=== PATIENT | female | born 1990 | race Caucasian/White ===

== ENCOUNTER 2021-05-14 16:26 | Emergency (ER) | payer OTHER ==
--- NOTE | 2021-05-14 17:59 | ED Physician Documentation ---
PD HPI FOCAL NEURO - Stated complaint Stated Complaint: RT FACE NUMB - Chief complaint Chief Complaint: Neuro - History obtained from History obtained from: Patient - Additional information Additional information: Throughout the day today the right side of her face felt funny and she noticed an asymmetric smile and difficulty closing the right eye. There is no associated headache or double vision. No other neurologic symptoms. Review of Systems Constitutional: reports: Reviewed and negative Eyes: reports: Reviewed and negative Ears: reports: Reviewed and negative Nose: reports: Reviewed and negative Throat: reports: Reviewed and negative PD PAST MEDICAL HISTORY - Present Medications Home Medications: Ambulatory Orders Medication Instructions Recorded Confirmed Valacyclovir HCl [Valtrex] 1,000 mg PO TID #30 tablet 05/14/21 predniSONE [Deltasone] 20 mg PO [id number] #21 tab 05/14/21 - Allergies Allergies/Adverse Reactions: Allergies Allergy/AdvReac Type Severity Reaction Status Date / Time No Known Drug Allergies Allergy Verified 05/14/21 16:46 PD ED PE NORMAL - Vitals Vital signs reviewed: Yes - General General: Alert and oriented X 3, No acute distress - HEENT HEENT: PERRL, EOMI - Neuro Neuro: Alert and oriented X 3, Other (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 There are no other cranial neuropathies.) Results - Vitals Vitals: Vital Signs - 24 hr 05/14/21 16:40 Temperature 36.4 C L Heart Rate 79 Respiratory 16 Rate Blood Pressure 130/77 O2 Saturation 98 Oxygen O2 Source Room air Departure - Departure Disposition: 01 Home, Self Care Clinical Impression: Bhatia's palsy Condition: Good Record reviewed to determine appropriate education?: Yes Instructions: ED [place] Palsy Prescriptions: predniSONE [Deltasone] 20 mg PO [id number] #21 tab Valacyclovir HCl [Valtrex] 1,000 mg PO TID #30 tablet Comments: Return if you worsen or if new symptoms develop. As discussed you may need to tape your eye shut at night and you should also buy an [id number] eye lubricating drop when you are at the pharmacy. [place]
[2021-05-14 18:17] VITALS: BP 132/65
== END 2021-05-14 18:12 | disposition home or self-care (01) ==
LOC: ED 16:26
DX: G51.0 Bell's palsy (principal)
CPT/HCPCS: 99282; 99283

== ENCOUNTER 2023-01-14 22:56 | Outpatient (CLI) | payer OTHER | END 2023-01-14 23:59 | disposition critical access hospital (66) | LOC: EMS 22:56 | DX: L50.9 Urticaria, unspecified (principal); L29.9 Pruritus, unspecified; R20.2 Paresthesia of skin; R11.0 Nausea; R25.1 Tremor, unspecified; R00.0 Tachycardia, unspecified | CPT/HCPCS: A0425; A0427 ==

== ENCOUNTER 2023-01-14 23:11 | Emergency (ER) | payer OTHER ==
--- NOTE | 2023-01-15 01:56 | ED Physician Documentation ---
History of Present Illness - Stated complaint Stated Complaint: ALLERGIC REACTION - Chief complaint Chief Complaint: Allergic Rx - History obtained from History obtained from: Patient - Additonal information Additional information: HPI from patient and EMS BIBA for possible allergic reaction. Patient developed diffuse pruritic rash approximately 30 minutes after taking a dose of miralax. She does not recall having taken this medication before. Denies h/o allergic reactions. Denies dyspnea but noted lightheadedness at times once the rash had appeared. EMS noted normal vital signs in field, administered 0.5mg IM epinephrine, and IV zofran, benadryl, and solu-medrol. Symptoms have resolved by the time of ED arrival. She is asymptomatic on my evaluation. Review of Systems Respiratory: reports: Reviewed and negative GI: reports: Reviewed and negative PD PAST MEDICAL HISTORY - Past Medical History Past Medical History: No - Present Medications Home Medications: Ambulatory Orders Medication Instructions Recorded Confirmed Valacyclovir HCl [Valtrex] 1,000 mg PO TID #30 tablet 05/14/21 predniSONE [Deltasone] 20 mg PO [id number] #21 tab 05/14/21 EPINEPHrine [Epinephrine] 0.3 mg IJ ONCE PRN #2 each 01/15/23 predniSONE [Deltasone] 40 mg PO DAILY 4 Days #6 tablet 01/15/23 - Allergies Allergies/Adverse Reactions: Allergies Allergy/AdvReac Type Severity Reaction Status Date / Time polyethylene glycol 3350 Allergy Anaphylaxis Verified 01/15/23 02:34 [From Miralax] PD ED PE NORMAL - Vitals Vital signs reviewed: Yes - General General: Alert and oriented X 3 - Cardiac Cardiac: RRR, No murmur - Respiratory Respiratory: No respiratory distress, Clear bilaterally - Derm Derm: Normal color, Warm and dry, No rash Results - Vitals Vitals: Oxygen O2 Source Room air PD Medical Decision Making - ED course Complexity details: reviewed results, re-evaluated patient, considered differential, d/w patient ED course: Presents with symptoms s/o allergic reaction , possibly due to miralax (suspected due to not having had this medication before and temporal proximity of dosing to symptoms). 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 observed for over 3.5 hours in ED without recurrence of symptoms, asymptomatic on initial HPI as well as reevaluation prior to d/c. She is provided prescriptions for epi-pens, prednisone, and given benadryl to take home (does not have this, or other antihistamines, at home). Advised to not take miralax again. Return precautions reviewed. Departure - Departure Disposition: Home, Self Care Clinical Impression: Allergic reaction Qualifiers: Encounter type: initial encounter Qualified Code(s): T78.40XA - Allergy, unspecified, initial encounter Condition: Good Instructions: ED Allergic Reaction General Other Prescriptions: predniSONE [Deltasone] 40 mg PO DAILY 4 Days #6 tablet EPINEPHrine [Epinephrine] 0.3 mg IJ ONCE PRN #2 each PRN Reason: Anaphylaxis Comments: I have electronically submitted prescriptions for Epi-Pen (epinephrin in an auto-inject device; the pharmacist can instruct you on how to use this autoinjector) and prednisone (steroid) to the [facility] pharmacy in [place]. When you scrap picker these prescriptions, you should also buy an antihistamine such as Benadryl to be used per label instructions in case you have ongoing or recurrent symptoms of allergic reaction. Discharge Date/Time: 01/15/23 03:03
[2023-01-15] MEDS ORDERED: diphenhydrAMINE 25 MG CAPSULE PO STA (02:30)
[2023-01-15 02:57] VITALS: BP 114/63
== END 2023-01-15 03:03 | disposition home or self-care (01) ==
LOC: EDUNIT# → ED 23:11
DX: T78.40XA Allergy, unspecified, initial encounter (principal)
CPT/HCPCS: 99283; A9270

== ENCOUNTER 2024-02-23 15:16 | Emergency (ER) | payer OTHER ==
--- NOTE | 2024-02-23 18:01 | ED Physician Documentation ---
History of Present Illness - Stated complaint Stated Complaint: HEART PALP, [place] - Chief complaint Chief Complaint: Cardiac - History obtained from History obtained from: Patient - History of Present Illness Pain level max: 0 Pain level now: 0 - Additonal information Additional information: Patient is a 33-year-old female who complains of palpitations. Ongoing for the past several days, worsening today. She states that she does vape, used to smoke. Does not take any medications at home. Drinks 1 cup of coffee per day. Does not drink energy drinks. She had been on Adderall but did not like the way that it made her feel, therefore she stopped this about a month ago. She states that it feels like there is a sharp pain in her chest and then her heart "skips a beat". Nothing seems to make it better or worse. No fevers. No chills. No cough. No congestion. 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 : None HEENT: None Psych: ADD/ADHD, Post traumatic stress disorder Musculoskeletal: None Derm: None - Past Surgical History Past Surgical History: No - Present Medications Home Medications: Ambulatory Orders Medication Instructions Recorded Confirmed Acetaminophen [Tylenol] 1 tab PO PRN PRN 02/23/24 02/23/24 Ibuprofen [Motrin] 1 tab PO PRN PRN 02/23/24 02/23/24 - Allergies Allergies/Adverse Reactions: Allergies Allergy/AdvReac Type Severity Reaction Status Date / Time polyethylene glycol 3350 Allergy Anaphylaxis Verified 02/23/24 15:24 [From Miralax] - Social History Does the pt smoke?: No Smoking Status: Never smoker Does the pt drink ETOH?: No Does the pt have substance abuse?: No - Immunizations Immunizations are current?: Yes - POLST Patient has POLST: No PD ED PE NORMAL - Vitals Vital signs reviewed: Yes - General General: Alert and oriented X 3, No acute distress - HEENT HEENT: Moist mucous membranes - Neck Neck: Supple, no meningeal sign - Cardiac Cardiac: RRR, Strong equal pulses - Respiratory Respiratory: No respiratory distress, Clear bilaterally - Abdomen Abdomen: Soft, Non tender, Non distended - Derm Derm: Warm and dry - Extremities Extremities: No edema, No calf tenderness / cord - Neuro Neuro: Alert and oriented X 3 - Psych Psych: Normal mood, Normal affect Results - Vitals Vitals: Vital Signs - 24 hr 02/23/24 02/23/24 02/23/24 15:24 18:34 19:58 Temperature 36.8 C 36.2 C L Heart Rate 80 79 85 Respiratory 16 21 16 Rate Blood Pressure 117/62 118/64 122/67 Blood Pressure 118/64 [Left] O2 Saturation 97 99 99 Oxygen O2 Source Room air - EKG (time done) 1529 EKG releavant findings:: EKG personally interpreted by author of this note. Relevant findings are: Rate: Rate (enter#) (78) Rhythm: NSR [place]: Normal Intervals: Normal [place] QRS: Normal Ischemia: Normal ST segments - Labs Labs: Laboratory Tests 02/23/24 02/23/24 18:42 18:42 WBC 11.5 H RBC 4.43 Hgb 12.9 Hct 38.4 MCV 86.7 MCH 29.1 MCHC 33.6 RDW 12.0 Plt Count 196 MPV 11.5 H Neut # (Auto) 9.5 H Lymph # (Auto) 1.3 L [place] # (Auto) 0.6 Eos # (Auto) 0.1 Baso # (Auto) 0.0 Absolute Nucleated RBC 0.00 Nucleated RBC % 0.0 Sodium 137 Potassium 3.9 Chloride 106 Carbon Dioxide 27 Anion Gap 4.0 L BUN 18 Creatinine 0.7 Estimated GFR (MDRD) 95 Glucose 104 Calcium 9.8 Phosphorus 2.4 L Magnesium 1.9 Total Bilirubin 0.5 AST 16 ALT 16 Alkaline Phosphatase 67 Total Protein 7.0 Albumin 4.7 Globulin 2.3 Albumin/Globulin Ratio 2.0 Lipase 15 PD Medical Decision Making - ED course Complexity details: reviewed results, re-evaluated patient, considered differential (No ST elevation [place], no aortic dissection, no PE, no tension pneumothorax, no aortic aneurysm), d/w patient ED course: 33-year-old female with palpitations. No acute findings on laboratory testing. No acute findings on EKG. No acute findings on telemetry. No palpitations here. No hypoxia or respiratory distress. No fevers. No chills. No nausea, vomiting, diarrhea. No electrolyte abnormalities. We will have her follow-up with her doctor for further care. Symptoms sound consistent with likely premature ventricular contractions. Patient counseled regarding signs and symptoms for which I believe and urgent re-evaluation would be necessary. Patient with good understanding of and agreement to plan and is comfortable going home at this time This document was made in part using voice recognition software. While efforts are made to proofread this document, sound alike and grammatical errors may occur. Departure - Departure Disposition: Home, Self Care Clinical Impression: Palpitations Condition: Good Instructions: ED Palpitations Follow-Up: your,doctor in 1 week [Other] Comments: Your testing does not show any acute abnormalities today. Your EKG and laboratory testing are normal. Please follow-up with your doctor for further care. Your history is concerning for potential premature ventricular contractions. These are not generally dangerous. You can buy an air sampling and monitoring that takes an EKG from your fingertips on [employer] to take a tracing at home if you have symptoms. Your doctor can also order a Holter monitor or Zio patch for you. Please return if you worsen. Forms: PCP List Discharge Date/Time: 02/23/24 19:58
[2024-02-23 18:43] VITALS: O2SAT 99
[2024-02-23 18:50] LABS: BASOPHILS % (AUTO) 0.3 %; EOSINOPHILS # (AUTO) 0.1 10^3/uL (0.0-0.7); EOSINOPHILS % (AUTO) 0.5 %; HCT - HEMATOCRIT 38.4 % (37.0-47.0); HGB - HEMOGLOBIN 12.9 g/dL (12.0-16.0); LYMPHOCYTES # (AUTO) 1.3 10^3/uL (1.5-3.5); LYMPHOCYTES % (AUTO) 11.2 %; MEAN CORPUSCULAR HEMOGLOBIN 29.1 pg (27.0-31.0); MEAN CORPUSCULAR HGB CONC 33.6 g/dL (32.0-36.0); MEAN CORPUSCULAR VOLUME 86.7 fL (81.0-99.0); MEAN PLATELET VOLUME 11.5 fL (7.9-10.8); MONOCYTES # (AUTO) 0.6 10^3/uL (0.0-1.0); MONOCYTES % (AUTO) 5.4 %; NEUTROPHILS # (AUTO) 9.5 10^3/uL (1.5-6.6); NEUTROPHILS % (AUTO) 82.3 %; PLT - PLATELET COUNT 196 10^3/uL (130-450); RED BLOOD COUNT 4.43 10^6/uL (4.20-5.40); WHITE BLOOD COUNT 11.5 x10^3/uL (4.8-10.8)
[2024-02-23 19:16] LABS: ALBUMIN 4.7 g/dL (3.2-5.5); BILIRUBIN,TOTAL 0.5 mg/dL (0.2-1.0); CALCIUM 9.8 mg/dL (8.5-10.3); CREATININE 0.7 mg/dL (0.6-1.3); MAGNESIUM 1.9 mg/dL (1.7-2.3); PHOSPHORUS 2.4 mg/dL (2.5-5.0); POTASSIUM 3.9 mmol/L (3.5-4.5)
[2024-02-23 20:05] VITALS: BP 122/67
== END 2024-02-23 19:58 | disposition home or self-care (01) ==
LOC: ED 15:16
DX: R00.2 Palpitations (principal); F17.290 Nicotine dependence, other tobacco product, uncomplicated
CPT/HCPCS: 36415; 80053; 83690; 83735; 84100; 85025; 93005; 99281; 99283